=== PATIENT | male | born 1975 | race Caucasian/White ===

== ENCOUNTER 2023-03-03 07:04 | Inpatient (IN) | payer OTHER ==
[~2023-03-03] VITALS: Ht 175.3 cm; Wt 66.8 kg
[2023-03-03 11:52] VITALS: BP 127/77
[2023-03-03 16:38] VITALS: BP 125/76
[2023-03-03 20:06] VITALS: BP 154/80
[2023-03-03 22:49] VITALS: BP 130/78
[2023-03-04] VITALS (8 sets, daily range): BP systolic 102–134; BP diastolic 63–83
--- NOTE | 2023-03-04 18:13 | CONS ---
[facility] [address] [place], [place] [address] Signed DATE OF CONSULTATION: 03/03/2023 PROBLEM: Right leg cellulitis with necrotic wound and purulent drainage. HISTORY: This is a 47-year-old white man who looks far older than stated age. He is homeless and six days ago began having redness and swelling in the medial aspect of the right calf in the midportion. He presented to the emergency room, was evaluated by Dr. Perkins and found to have significant cellulitis and some necrotic skin and possible fluid collection. A CT scan was performed of the right leg, which confirmed subcutaneous edema and inflammation and possible fluid but no large fluid collection proper. The patient is a very poor historian as to the etiology of his issue, in large part related to ongoing drug dependency with methamphetamine and cocaine. He is poorly communicative as regards his overall situation to me and two others. He has been admitted to the intensive care unit by Dr. North and initiated on vancomycin and consideration for additional antibiotics also made. He is noted to have an elevated white count of 15.7, hematocrit of 39 and platelets of 407,000. His Chem profile was abnormal only for a lactic acid of 2.3. Creatinine is normal at 0.71, potassium is 3.3. REVIEW OF SYSTEMS: He has complaints of pain in the right leg, but no other generalized complaint. Review of Dr. North and Dr. Perkins's note confirms this as well. PHYSICAL EXAMINATION: GENERAL: This is a relatively thin, excessively skin tanned white man who is arousable but somewhat somnolent generally. PULMONARY: His chest shows normal respiratory excursion. His pulses are regular on monitor. MUSCULOSKELETAL: Direct exam to the right lower extremity shows the leg to be elevated. It is erythematous and with edema. In the medial aspect of the mid calf, there is a subacute wound with manipulation showing drainage of purulent material. There is an opening in it. There is some necrotic tissue there. It is slightly uncomfortable. I see no evidence of chronic venous stasis disease proper nor arterial insufficiency necessarily. ASSESSMENT: He clearly has cellulitis and the necrotic wound for which debridement will be necessary. Unfortunately, patient was recently fed. He does have spontaneous drainage of purulent material at this time. Electronically Signed By: CAMILLE TUBBS MD 03/04/23 1813 PATIENT NAME: SUMA SHI CONSULTATION DATE OF : 71 REPORT #: [id number] PHYSICIAN: CAMILLE TUBBS MD PCP: NO PRIMARY CARE PHYSICIAN REPORT IS CONFIDENTIAL AND NOT TO BE RELEASED WITHOUT AUTHORIZATION [facility] [address], [place] [address] Signed I discussed with him a recommendation to go to surgical intervention to include an anesthetic and debridement of necrotic tissue. Most likely, this can be cleaned up relatively promptly with appropriate antibiotic therapy, debridement and local wound care. He ultimately will probably require a skin graft that is not certain. MD ALCON Nails/HEIDI /[id number] cc: Brenna North MD Copies: BRENNA NORTH MD ~ Electronically Signed By: CAMILLE TUBBS MD 03/04/23 1813 PATIENT NAME: SUMA SHI CONSULTATION DATE OF : 71 REPORT #: [id number] PHYSICIAN: CAMILLE TUBBS MD PCP: NO PRIMARY CARE PHYSICIAN REPORT IS CONFIDENTIAL AND NOT TO BE RELEASED WITHOUT AUTHORIZATION
[2023-03-05 00:09] VITALS: BP 109/63
[2023-03-05 05:34] VITALS: BP 112/65
[2023-03-05 09:09] VITALS: BP 117/65
[2023-03-05 13:16] VITALS: BP 122/76
[2023-03-05] MEDS ORDERED: BACTRIM DS TAB1 EACH PO (15:56)
--- NOTE | 2023-03-06 10:09 | OR ---
[facility] [address] [place], [place] [address] Signed DATE OF OPERATION: 03/03/2023 SURGEON: Camille Tubbs MD PREOPERATIVE DIAGNOSIS: Right medial calf necrotizing soft tissue infection with purulent drainage. POSTOPERATIVE DIAGNOSIS: Right medial calf necrotizing soft tissue infection with purulent drainage. PROCEDURES: 1. Exam under anesthesia. 2. Gram stain and culture. 3. Drainage of abscess fluid. 4. Debridement of skin and subcutaneous tissue and portions of muscular fascia, right medial calf area. ANESTHESIA: General, LMA. 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 INDICATIONS: This 47-year-old white man presented to emergency room yesterday, March 03, 2023, with pain and obvious cellulitis. He was admitted by Dr. North and found to have a necrotizing soft tissue infection in the mid calf. Spontaneous drainage of purulent material has been noted. He was started on vancomycin antibiotic. Leg elevation has been undertaken and he appears to be generally improved today. Debridement is anticipated of necrotic tissue and more aggressive clearance of necrotic tissue related to the wound and cultures to be obtained as well. He understands risk of bleeding, infection, need for additional treatment, and so on, and wished to proceed. FINDINGS: Complete necrosis of skin and subcutaneous tissue was noted in the area in question in the medial mid calf area. Complete excision was undertaken. The defect resultant was 7 x 6 cm in maximum dimension (42 sq cm). Some fascial coverings of the gastrocnemius did require debridement. Gram stain and cultures were obtained. There was some area of the wound that was already granulating, which of course is most welcome, however, much of the wound requires additional wound care treatment. DESCRIPTION OF PROCEDURE: Electronically Signed By: CAMILLE TUBBS MD 03/06/23 1009 PATIENT NAME: SUMA SHAW OPERATIVE REPORT DATE OF : 71 REPORT #: [id number] PHYSICIAN: CAMILLE TUBBS MD PCP: NO PRIMARY CARE PHYSICIAN REPORT IS CONFIDENTIAL AND NOT TO BE RELEASED WITHOUT AUTHORIZATION [facility] [address] [place], [place] [address] Signed The patient was brought to the operating room, given a general LMA type anesthetic. The patient has been on vancomycin and metronidazole antibiotics. The right lower extremity was placed in a frog-leg position and the right calf area prepared with a Betadine-based solution and draped sterilely. Close inspection of the wound showed a defect in the central portion of necrosis with egress of purulent material. The entire eschar was debrided with sharp dissection using a #15 blade. The wound edges were debrided back to bleeding tissue, which was secured with electrocautery. The necrotic skin and subcutaneous tissue were elevated off the muscular compartment and some areas of granulation were actually noted. Complete excision of the necrotic tissue was accomplished including sharp dissection of investing fascial layer in the deep aspect over the muscle itself. Once complete debridement of nonviable tissue was accomplished, irrigation was undertaken with sterile saline. A wound VAC dressing would be a good option. However, the patient had threatened that he will be "leaving AMA prior to operation" and on that basis a sturdy plain gauze dressing was applied with Kerlix gauze and an Nikolai wrap. I am hopeful that he will plan to stay for additional treatment. Future treatment will likely include local wound care until granulating base and subsequent split-thickness skin grafting, which I think he would do well with. It remains to be seen what he will allow. He was ultimately extubated and transported to recovery room in good condition having suffered no known complication. Sponge, needle, and instrument counts were reported as correct x3. MD ALCON Nails/MODL /[id number] cc: Brenna North MD Electronically Signed By: CAMILLE TUBBS MD 03/06/23 1009 PATIENT NAME: SUMA SHAW OPERATIVE REPORT DATE OF : 71 REPORT #: [id number] PHYSICIAN: CAMILLE TUBBS MD PCP: NO PRIMARY CARE PHYSICIAN REPORT IS CONFIDENTIAL AND NOT TO BE RELEASED WITHOUT AUTHORIZATION [facility] [address] [place], [place] [address] Signed Copies: BRENNA NORTH MD ~ Electronically Signed By: CAMILLE TUBBS MD 03/06/23 1009 PATIENT NAME: SUMA SHAW OPERATIVE REPORT DATE OF : 71 REPORT #: [id number] PHYSICIAN: CAMILLE TUBBS MD PCP: NO PRIMARY CARE PHYSICIAN REPORT IS CONFIDENTIAL AND NOT TO BE RELEASED WITHOUT AUTHORIZATION
--- NOTE | 2023-03-07 12:04 | PATH ---
[facility] [place] [facility] [address] [place], [place] [address] Signed SPECIMEN(S): A RT MID MEDIAL CALF PROD OF DEBRIDEMENT SPECIMEN SOURCE: A. RT MID MEDIAL CALF PROD OF DEBRIDEMENT CLINICAL HISTORY: IGD with soft tissue debridement, sepsis. FINAL PATHOLOGIC DIAGNOSIS: Right medial calf products of debridement: - Skin and soft tissue with extensive necrosis and abscess. JVR:[id number] MICROSCOPIC EXAMINATION: Histologic sections of all submitted blocks are examined by light microscopy. These findings, together with the gross examination, support the pathologic diagnosis. GROSS DESCRIPTION: The specimen, labeled and designated "Joel (per 1), Adrienne," and designated on the HC1 resolution "right medial calf," is received in formalin and consists of a portion of pedro to black-brown, softened skin and soft tissue (5.5 x 4.7 x 2.0 cm). The tissue is sectioned to reveal a white-pedro to haywood-brown, soft cut surface. Panel Saw Operator sections are submitted in cassette (A1). AC (under the direct supervision of a pathologist) The Gross Description was prepared using a voice recognition system. The report was reviewed for accuracy; however, sound-alike word errors, addition and/or deletions may occur. If there is any question about this report, please contact Client Services. PERFORMING LABORATORY: The technical component was performed by [facility], [address] [place] [id number] (CLIA# [id number]). Professional interpretation was performed by [facility], [address] [place] [id number] (CLIA#: [id number]). Diagnostician: Joni Cruz MD Pathologist Electronically Signed 03/07/2023 PATIENT NAME: SUMA SHAW PATHOLOGY DATE OF : 71 REPORT #: [id number] PHYSICIAN: [facility] PCP: NO PRIMARY CARE PHYSICIAN REPORT IS CONFIDENTIAL AND NOT TO BE RELEASED WITHOUT AUTHORIZATION [address] [address] Signed Copies: ~ PATIENT NAME: SUMA SHAW Donnie PATHOLOGY DATE OF : 71 REPORT #: [id number] PHYSICIAN: [facility] PCP: NO PRIMARY CARE PHYSICIAN REPORT IS CONFIDENTIAL AND NOT TO BE RELEASED WITHOUT AUTHORIZATION
== END 2023-03-05 16:53 | disposition home or self-care (01) | DRG 854 ==
LOC: ED 07:04 → CCU 10:08 → MS 03-04 15:30
PROVIDERS: ADMIT Internal Medicine; ATTEND Internal Medicine
PROC: 0KBS0ZZ Excision of Right Lower Leg Muscle, Open Approach (ICD-10-PCS; principal; 2023-03-03)
PROC: 3E03329 Introduction of Other Anti-infective into Peripheral Vein, Percutaneous Approach (ICD-10-PCS; 2023-03-03)
DX: A41.02 Sepsis due to Methicillin resistant Staphylococcus aureus (principal); L03.115 Cellulitis of right lower limb; E87.6 Hypokalemia; K75.2 Nonspecific reactive hepatitis; F19.10 Other psychoactive substance abuse, uncomplicated; Z59.00 Homelessness unspecified
CPT/HCPCS: 01470; 36415; 73701; 80048; 80053; 80076; 83605; 83735; 85025; 86704; 86706; 86803; 87340; 88304; A9270; J0878; J1100; J1650; J1885; J2250; J2704; J3010; J7030; J7121; Q0177; Q9967